=== PATIENT | female | born 2000 | race Caucasian/White ===

== ENCOUNTER 2019-07-17 13:00 | Emergency (ER) | payer BC, MEDICAID, SELFPAY ==
--- NOTE | ~2019-07-17 | XR_ITS ---
EXAMINATION: XR chest 2V DATE: 07/17/2019 13:40 INDICATION: Left-sided chest pressure TECHNIQUE: PA and lateral views of the chest were obtained. COMPARISON: None FINDINGS: The lungs are clear with no focal airspace opacities, pulmonary edema, pleural effusion or pneumothor ax. The cardiomediastinal silhouette is normal. 20 degree thoracolumbar dextroscoliosis. IMPRESSION: 1. No acute cardiopulmonary disease. Reviewed, dictated and finalized at location A. 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
--- NOTE | ~2019-07-17 | CT_ITS ---
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 Elevated d-dimer. TECHNIQUE: Computed tomographic angiography (CTA) of the chest was performed with 100 mL Omnipaque-35 0 intravenous contrast. The dose-length product was 137.15 mGy-cm. Maximum intensity projection 3D-re constructions of the aorta and other arteries were constructed by the technologist on a separate work station. Automated exposure control and iterative reconstruction technique were employed. COMPARISON: No prior studies for comparison. FINDINGS: The study is technically limited by streak artifact from contrast in the SVC. This limits evaluation of the right upper lobe segmental and subsegmental pulmonary arteries. No definite pulmonary embolism is identified. No significant pleural or pericardial effusion. There is residual thymic tissue. No e vidence for aortic aneurysm or dissection. The upper abdomen is unremarkable. No endobronchial lesion s. No evidence for pneumothorax. No focal airspace consolidation. IMPRESSION: 1. Limited study due to streak artifact in the SVC limiting evaluation of the right upper lobe pulmon den arteries. No central pulmonary embolism. Reviewed, dictated and finalized at location A. FITTINGS MOLDER IMPRESSION: 1. Limited study due to streak artifact in the SVC limiting evaluation of the r ight upper lobe pulmonary arteries. No central pulmonary embolism.
--- NOTE | ~2019-07-17 | NM_ITS ---
NM lung vent and perfusion INDICATION: Right-sided chest pressure. TECHNIQUE: The patient inhaled aerosolized 9.9 mCi xenon-133. Following ventilation scan, 5.1 mCi Tc 99m MAA was injected intravenously for perfusion images. Multiple images were then acquired. COMPARISON: Chest x-ray dated 07/17/2019 FINDINGS: The comparison chest radiograph demonstrates no pulmonary infiltrates or pleural fluid. Th e perfusion scan is normal. The aerosol in images show uniform deposition throughout the lungs. IMPRESSION: 1: Normal ventilation and perfusion images. Reviewed, dictated and finalized at location A. ATTENDANT
--- NOTE | 2019-07-17 13:01 | ECG_ITS ---
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
[2019-07-17 13:11] VITALS: BP 148/79; PULSE 79; RESP 20; TEMP 36.8; O2SAT 100
--- NOTE | 2019-07-17 13:20 | PC.NURSE ---
lab draw attempt x 2 unsuccessful in triage.
[2019-07-17 15:25] VITALS: PULSE 53
[2019-07-17 15:27] VITALS: BP 123/85; PULSE 57; RESP 17; O2SAT 100
[2019-07-17 15:29] LABS: Basophils Absolute Auto 0.1 K/mm3 (0.0-0.1); Basophils Percent Auto 0.6 % (0.2-1.2); Eosinophils Absolute Auto 0.2 K/mm3 (0-0.3); Eosinophils Percent Auto 1.7 % (0-4.4); Hematocrit 39.1 % (37.0-47.0); Hemoglobin 13.4 g/dL (12.0-15.0); Immature Granulocyte Absolute 0.03 K/mm3 (0.00-0.031); Immature Granulocyte Percent A 0.3 % (0-0.5); Lymphocytes Absolute Auto 2.86 K/mm3 (0.9-3.2); Lymphocytes Percent Auto 29.8 % (18.3-44.2); Mean Corpuscular HGB Conc 34.3 g/dl (32-36); Mean Corpuscular Hemoglobin 29.4 pg (26-34); Mean Corpuscular Volume 85.7 fl (80-100); Mean Platelet Volume 9.8 fl (7.4-10.4); Monocytes Absolute Auto 0.4 K/mm3 (0.1-0.6); Monocytes Percent Auto 4.3 % (2.6-8.5); Neutrophils Absolute Auto 6.1 K/mm3 (1.3-6.7); Neutrophils Percent Auto 63.3 % (45.5-73.1); Platelet Count Result 387 k/mm3 (150-375); Red Blood Count 4.56 M/mm3 (4.2-5.4); Red Cell Distribution Width 12.7 % (11.5-14.5); White Blood Count 9.6 K/mm3 (4.5-10.0)
[2019-07-17 15:39] LABS: Partial Thromboplastin Time 21.9 SECONDS (22.3-36.8); Prothrombin Time 12.4 Seconds (11.1-14.7)
[2019-07-17 15:50] LABS: D Dimer 1.38 ug/mL (<0.48)
[2019-07-17 16:04] LABS: Troponin I < 0.012 ng/mL (0.000-0.034)
[2019-07-17] MEDS: LORAZEPAM 0.5 MG TABLET PO (16:08)
[2019-07-17 16:14] LABS: Blood Urea Nitrogen 10 mg/dL (8-21); Calcium 9.7 mg/dL (8.9-10.7); Carbon Dioxide 19 mmol/L (22-30); Chloride 103 mmol/L (98-107); Estimated Glomerular Filt Rate > 60; Glucose 86 mg/dL (65-105); Potassium 4.7 mmol/L (3.4-5.0); Sodium 138 mmol/L (134-143)
--- NOTE | 2019-07-17 16:23 | ED.GENADULT ---
HPI - General Adult General Chief complaint: Chest Pain Stated complaint: right sided chest pressure Time Seen by Provider: 07/17/19 15:33 Source: patient Mode of arrival: ambulatory Limitations: no limitations History of Present Illness HPI narrative: Patient is a 18-year-old female who presents to emergency department for evaluation of left-sided chest pressure radiating to the left upper extremity denies any URI symptoms or similar occurrence in the past on arrival denying any pain has had similar occurrence in the past that resolved mother notes she has had similar occurrences diagnosed as anxiety patient on arrival is resting comfortably in the room does note anxiety denies any pain is noted does note heaviness nothing is made it better or worse. Related Data Home Medications Medication Instructions Recorded Confirmed norethindrone-e.estradiol-iron 1 cap PO DAILY 06/01/19 06/01/19 [T[place]tulla] Allergies Allergy/AdvReac Type Severity Reaction Status Date / Time clavulanic acid Allergy Mild Rash Unverified 05/16/17 22:49 Penicillins Allergy Mild Unknown Unverified 06/01/19 17:15 amoxicillin Allergy Unknown Unknown Verified 05/16/17 22:49 BETALACTAMASEIN Allergy Mild Unknown Uncoded 06/01/19 17:15 Review of Systems Review of Systems: All systems reviewed & are unremarkable except as noted in HPI and below PMFSH Past Medical History Medical History History of migraine Social History Social History (Updated 07/17/19 @ 16:26 by Wild Smith PA-C) Smoking status: Never smoker Gender identity (if verbalized by the patient): Female Exam Narrative: Exam Narrative: GENERAL: Well-appearing, well-nourished, and in no acute distress. HEAD: Normocephalic, atraumatic. EYES: PERRLA and EOMI. ENT: Nares clear, no rhinorrhea or epistaxis. Mucous membranes moist. CHEST: Clear to auscultation. No respiratory distress. No wheezes rales or rhonchi HEART: Regular rate and rhythm. No murmur heard. Normal peripheral pulses. ABDOMEN: Soft, nontender, nondistended EXTREMITIES: Normal range of motion. No edema. SKIN: Warm, dry, no rash. NEURO: No focal deficits. Alert and oriented x3. PSYCH: Normal mood and affect. Course Course Emergency Course: Patient in the room in no distress aware of case findings treatment plan and diagnosis agreeing to follow-up as directed or to return if symptoms worsen or concerns Consultations Consultation #1: Discussed case with primary care who will follow the patient Date: 07/17/19 Vital Signs Vital signs: Vital Signs Temperature 98.2 F 07/17/19 13:11 Pulse Rate 79 07/17/19 13:11 Respiratory Rate 20 07/17/19 13:11 Blood Pressure 148/79 H 07/17/19 13:11 Pulse Oximetry 100 07/17/19 13:11 Temperature 98.2 F 07/17/19 13:11 Pulse Rate 57 L 07/17/19 15:27 Respiratory Rate 17 07/17/19 15:27 Blood Pressure 123/85 07/17/19 15:27 Pulse Oximetry 100 07/17/19 15:27 Medical Decision Making MDM Narrative Medical decision making narrative: Patient in the room at this time in no distress aware of case findings treatment plan and diagnosis. Likely anxiety as her symptoms with low risk VQ scan felt appropriate for discharge home for further evaluation on outpatient basis Vital Signs Vital Signs: Vital Signs Temperature 98.2 F 07/17/19 13:11 Pulse Rate 79 07/17/19 13:11 Respiratory Rate 20 07/17/19 13:11 Blood Pressure 148/79 H 07/17/19 13:11 Pulse Oximetry 100 07/17/19 13:11 Temperature 98.2 F 07/17/19 13:11 Pulse Rate 57 L 07/17/19 15:27 Respiratory Rate 17 07/17/19 15:27 Blood Pressure 123/85 07/17/19 15:27 Pulse Oximetry 100 07/17/19 15:27 Lab Data Result diagrams: 07/17/19 15:24 07/17/19 15:24 Labs: Lab Results 07/17/19 07/17/19 07/17/19 Range/Units 15:24 15:24 15:24 WBC 9.6 (4.5-10.0) K/mm3 RBC 4.56 (4.2
[2019-07-17 18:19] VITALS: BP 118/71; PULSE 76; RESP 18; O2SAT 99
[2019-07-17 19:09] LABS: Troponin I < 0.012 ng/mL (0.000-0.034)
[2019-07-17 20:18] VITALS: BP 116/76; PULSE 77; RESP 18; O2SAT 98
== END 2019-07-17 20:19 | disposition home or self-care (01) ==
PROVIDERS: Emergency Medicine Emergency Medical Services; Emergency Provider Family Medicine; PCP Pediatrics
DX: R07.89 Other chest pain (principal); R94.31 Abnormal electrocardiogram [ECG] [EKG]
CPT/HCPCS: 36415; 71046; 71275; 78582; 80048; 81025; 84484; 85025; 85380; 85610; 85730; 93005; 99284; A9270; A9540; A9558; Q9967

== ENCOUNTER 2020-03-24 08:48 | Emergency (ER) | payer BC, MEDICAID, SELFPAY ==
[2020-03-24 08:59] VITALS: BP 102/59; PULSE 118; RESP 16; TEMP 36.7; O2SAT 99
--- NOTE | 2020-03-24 09:22 | ED.URI ---
HPI - URI/Sore Throat General Chief Complaint: Upper Respiratory Infection Stated Complaint: Ear Pain Time Seen by Provider: 03/24/20 09:06 Source: patient and RN notes reviewed Mode of arrival: ambulatory Limitations: no limitations History of Present Illness HPI Narrative: Patient presents today complaining of a sore throat, fever up to 101.8 since yesterday with bilateral ear pain x2 days. She also complains of mild headache. Currently rates her pain 7/10. She has been taking Tylenol with mild relief. Denies cough, congestion, rhinorrhea, nausea or vomiting, loss of taste or smell. Denies sick exposures or exposure to COVID-19. Patient was on vacation in [place] last week. MD elicited complaint: fever and sore throat Related Data Home Medications Medication Instructions Recorded Confirmed norethindrone-e.estradiol-iron 1 cap PO DAILY 06/01/19 03/24/20 [Taytulla] Allergies Allergy/AdvReac Type Severity Reaction Status Date / Time clavulanic acid Allergy Mild Rash Verified 03/24/20 09:33 Penicillins Allergy Mild Unknown Verified 03/24/20 09:33 Review of Systems Review of Systems: Narrative: CONSTITUTIONAL: Denies body aches, chills, or sweat.+ fever. EYES: Denies visual changes, redness, or discharge. ENT: Denies rhinorrhea, congestion. + sore throat, bilateral ear pain CARDIOVASCULAR: Denies chest pain, palpitations, or edema. RESPIRATORY: Denies cough or dyspnea. GASTROINTESTINAL: Denies abdominal pain, nausea, vomiting, or diarrhea. GENITOURINARY: Denies dysuria or hematuria. SKIN: Denies rash, itching, or wounds. MUSCULOSKELETAL: Denies back pain, joint pain, or myalgia. NEUROLOGIC: Denies headache, numbness, tingling, or weakness. PSYCH: Denies depression or anxiety. [facility] Past Medical History Medical History (Updated 03/24/20 @ 09:24 by JUAN Dixon, ) History of migraine Family History Family History Other Family history of seizure disorder Hypertension Social History Social History (Updated 07/17/19 @ 16:26 by Wild Smith PA-C) Smoking status: Never smoker Gender identity (if verbalized by the patient): Female Comments At time of signature, I have reviewed and agree with nursing past medical, surgical, social and family history unless otherwise noted. Please see nursing chart for further information. There is no relevant family history pertinent to the presenting complaint Exam Narrative: Exam Narrative: GENERAL: Well-appearing, well-nourished, and in no acute distress. HEAD: Normocephalic, atraumatic. EYES: EOMI. No redness or drainage. Conjunctivae normal. ENT: Mucous membranes pink and moist. Nares clear. No rhinorrhea. TMs normal bilaterally. Throat mildly erythematous posteriorly without edema or exudate. Uvula midline. NECK: Normal AROM. Supple. No lymphadenopathy. CHEST: No respiratory distress. Clear to auscultation. HEART: Regular rate and rhythm. No murmur appreciated. Normal peripheral pulses. EXTREMITIES: Normal range of motion. No edema. SKIN: Warm, dry, no rash. Capillary refill normal. Normal skin turgor. NEURO: No focal deficits. Alert and oriented x3. Gait steady. PSYCH: Normal affect. No signs of depression or anxiety. Course Course Emergency Course: Due to recent exposure and symptoms, patient may have a possible COVID-19 infection. Signs and symptoms discussed with patient. Patient educated to self-isolate in a room in his/her home away from others they live with. Use mask if available. Patient was advised not to leave house for any reason ? Self-treatment discussed including Tylenol for fever, pain, or myalgia, and cough cold medications for symptoms. Patient to check temperature daily and monitor for symptoms of respiratory distress. Patient should check in daily with primary care office/system via phone/virtual platform ? Nature of the disease to cause dinora
== END 2020-03-24 09:30 | disposition home or self-care (01) ==
PROVIDERS: Emergency Provider Nurse Practitioner; PCP Pediatrics
DX: J06.9 Acute upper respiratory infection, unspecified (principal); Z20.828 Contact with and (suspected) exposure to other viral communicable diseases
CPT/HCPCS: 87081; 87804; 87880; 99213; G0463

== ENCOUNTER 2020-03-25 08:18 | Outpatient (NON) | payer BC, MEDICAID, SELFPAY ==
[2020-03-25 20:51] LABS: SARS-CoV-2 RNA PCR Negative
== END 2020-03-25 08:19 ==
PROVIDERS: PCP Pediatrics; Visit Provider Nurse Practitioner
DX: J06.9 Acute upper respiratory infection, unspecified (principal); Z20.828 Contact with and (suspected) exposure to other viral communicable diseases
CPT/HCPCS: 87635; C9803; U0003

== ENCOUNTER 2020-09-22 07:45 | Emergency (ER) | payer BC, MEDICAID, SELFPAY ==
--- NOTE | ~2020-09-22 | XR_ITS ---
EXAMINATION: XR abdomen/kub 1V DATE: 09/22/2020 10:04 INDICATION: Right flank pain. TECHNIQUE: A supine view of the abdomen on 2 radiographs was obtained. COMPARISON: Abdomen radiographs 05/16/2017, CT abdomen and pelvis 09/22/2020 FINDINGS: There are no dilated loops of bowel. There is a small volume of stool in the colon. IMPRESSION: 1. Normal bowel gas pattern. Reviewed, dictated and finalized at location A.
--- NOTE | ~2020-09-22 | CT_ITS ---
EXAMINATION: CT abdomen pelvis wo con DATE: 09/22/2020 09:45 INDICATION: Right flank pain. TECHNIQUE: Computed tomography (CT) of the abdomen and pelvis was performed without intravenous contr ast. Automated exposure control and iterative reconstruction technique were employed. The dose-length product was 174.10 mGy-cm. COMPARISON: Chest CT 07/17/2019 FINDINGS: The visualized portions of the lung bases are clear without pneumonia or pleural effusion. The heart size is normal. No pericardial effusion. The liver, gallbladder, spleen, pancreas, adrenal glands, and kidneys are normal. There is no urolithiasis. There are no dilated loops of bowel. The ap pendix is normal. There are no pathologically enlarged lymph nodes. There is no free intraperitoneal fluid. There is dextroscoliosis of thoracolumbar spine. IMPRESSION: 1. No etiology for the patient's symptoms. Reviewed, dictated and finalized at location A.
[2020-09-22 07:57] VITALS: BP 115/79; PULSE 73; RESP 18; TEMP 36.2; O2SAT 100
--- NOTE | 2020-09-22 08:02 | ED.BACK ---
HPI - Back Pain/Injury General Chief Complaint: Back Pain/Injury Stated Complaint: back pain Time Seen by Provider: 09/22/20 07:52 Source: patient Mode of arrival: ambulatory Limitations: no limitations History of Present Illness HPI Narrative: This is a 19 year old female who presents for evaluation of right lower back pain . This pain started suddenly started at 645 am and it woke her up from her sleep. She took aleve at the onset of her pain so her pain decreased from 8/10 to 5/10 now. She denies radiation of her pain. Denies nausea, vomiting, fever or urinary symptoms. She is also currently on her menstrual cycle now. She denies history of kidney stones. Timing: improved Quality: stabbing Related Data Home Medications Medication Instructions Recorded Confirmed norethindrone-e.estradiol-iron 1 cap PO DAILY 06/01/19 03/24/20 [Taytulla] Allergies Allergy/AdvReac Type Severity Reaction Status Date / Time amoxicillin [From Augmentin] Allergy Mild Rash Verified 09/22/20 08:05 clavulanic acid Allergy Mild Rash Verified 09/22/20 08:01 Penicillins Allergy Mild Unknown Verified 09/22/20 08:01 Review of Systems Review of Systems: All systems reviewed & are unremarkable except as noted in HPI and below PMFSH Past Medical History Medical History (Updated 09/22/20 @ 10:44 by Sarai Logan MD) History of migraine Surgical History Surgical History (Updated 09/22/20 @ 08:04 by Sarai Logan MD) No pertinent past surgical history Family History Family History Other Family history of seizure disorder Hypertension Social History Social History (Updated 07/17/19 @ 16:26 by Wild Smith PA-C) Smoking status: Never smoker Gender identity (if verbalized by the patient): Female Exam Const: General: no acute distress and alert Orientation/consciousness: patient oriented x3 Eyes: EOM: EOMs intact bilaterally Chest: Chest palpation & inspection: normal inspection of the chest Resp: Effort & Inspection: normal respiratory effort and no retractions Auscultation: clear to auscultation bilaterally Cardio: Rate: regular rate Rhythm: regular rhythm Heart sounds: no murmurs GI: Auscultation: normal bowel sounds Other: soft, nontender, non distended : General: Yes no CVA tenderness Speculum Exam - Cervix: Cervical os closed Bimanual Exam- Adnexa, other: no masses and No adnexal tenderness Skin: General skin exam: normal color Rashes: no rashes Course Reevaluation(s) Reevaluation #1: I reviewed with patient that she has not definite UTI. she is currently on her cycle. She will drink plenty of fluid. Other than vaginal bleeding her pelvic was unremarkable. No adnexal tenderness or pain due to ovarian cyst. Date: 09/22/20 Time: 10:42 Vital Signs Vital signs: Vital Signs Temperature 97.2 F L 09/22/20 07:57 Pulse Rate 73 09/22/20 07:57 Respiratory Rate 18 09/22/20 07:57 Blood Pressure 115/79 09/22/20 07:57 Pulse Oximetry 100 09/22/20 07:57 Temperature 97.2 F L 09/22/20 07:57 Pulse Rate 60 09/22/20 10:21 Respiratory Rate 16 09/22/20 10:21 Blood Pressure 141/88 H 09/22/20 10:21 Pulse Oximetry 100 09/22/20 10:21 MDM - Back Pain/Injury Lab Data Attestation: I reviewed the patient's lab results. Result diagrams: 09/22/20 08:58 09/22/20 08:58 Labs: Lab Results 09/22/20 09/22/20 09/22/20 Range/Units 08:58 08:58 08:58 WBC 7.0 (4.5-10.0) K/mm3 RBC 4.45 (4.2-5.4) M/mm3 Hgb 13.3 (12.0-15.0) g/dL Hct 40.3 (37.0-47.0) % MCV 90.6 (80-100) fl MCH 29.9 (26-34) pg MCHC 33.0 (32-36) g/dl RDW 12.1 (11.5-14.5) % Plt Count 345 (150-375) k/mm3 MPV 9.9 (7.4-10.4) fl Immature Gran % (Auto) 0.3 (0-0.5) % Neut % (Auto) 38.4 L (45.5-73.1) % Lymph % (Auto) 48.3 H (18.3-44.2) % [place] % (Auto) 7.
[2020-09-22] MEDS: CYCLOBENZAPRINE HCL 5 MG TABLET PO (08:05)
[2020-09-22 09:10] LABS: Basophils Absolute Auto 0.1 K/mm3 (0.0-0.1); Eosinophils Absolute Auto 0.4 K/mm3 (0-0.3); Hematocrit 40.3 % (37.0-47.0); Hemoglobin 13.3 g/dL (12.0-15.0); Immature Granulocyte Absolute 0.02 K/mm3 (0.00-0.031); Immature Granulocyte Percent A 0.3 % (0-0.5); Lymphocytes Absolute Auto 3.39 K/mm3 (0.9-3.2); Lymphocytes Percent Auto 48.3 % (18.3-44.2); Mean Corpuscular Hemoglobin 29.9 pg (26-34); Mean Corpuscular Volume 90.6 fl (80-100); Mean Platelet Volume 9.9 fl (7.4-10.4); Monocytes Absolute Auto 0.5 K/mm3 (0.1-0.6); Neutrophils Absolute Auto 2.7 K/mm3 (1.3-6.7); Neutrophils Percent Auto 38.4 % (45.5-73.1); Platelet Count Result 345 k/mm3 (150-375); Red Blood Count 4.45 M/mm3 (4.2-5.4); Red Cell Distribution Width 12.1 % (11.5-14.5)
[2020-09-22 09:20] LABS: Alanine Aminotransferase 14 U/L (4-35); Albumin Level 4.8 g/dL (3.5-5.1); Alkaline Phosphatase 73 U/L (38-126); Anion Gap 12 mmol/L (8-16); Aspartate Amino Transferase 25 U/L (14-36); Bilirubin,Total 0.9 mg/dL (0.2-1.3); Blood Urea Nitrogen 11 mg/dL (7-17); Calcium 9.6 mg/dL (8.4-10.2); Carbon Dioxide 21 mmol/L (22-30); Chloride 106 mmol/L (98-107); Estimated Glomerular Filt Rate > 60; Glucose 92 mg/dL (65-105); Potassium 3.6 mmol/L (3.4-5.0); Sodium 139 mmol/L (137-145)
[2020-09-22 09:23] LABS: Add Urine Microscopic? YES; Appearance Urine Cloudy (Clear); Bilirubin Urine Negative (Negative); Blood Urine 3+ (Negative); Color Urine Amber (Yellow); Glucose Urine UA Negative (Negative); Ketones Urine Negative (Negative); Leukocyte Esterase Ur Negative LEU/UL (Negative); Mucus Urine Heavy /lpf; Nitrate Urine Negative (Negative); Protein Urine 2+ mg/dL (Negative); RBC Urine >75 /hpf (0-2); Squamous Epithelial Cell Urine Many /hpf (Few); Urobilinogen Urine Negative mg/dL (<2.0); WBC Clumps Urine Present /HPF
[2020-09-22 09:31] LABS: Specific Grav Ur 1.033 (1.001-1.035)
[2020-09-22 10:21] VITALS: BP 141/88; PULSE 60; RESP 16; O2SAT 100
--- NOTE | 2020-09-22 10:24 | PC.NURSE ---
pt does not want to take ordered ibuprofen at this time. reports 0/10 pain
== END 2020-09-22 10:56 | disposition home or self-care (01) ==
PROVIDERS: Emergency Provider General Practice; PCP Pediatrics
DX: M54.5 Low back pain (principal)
CPT/HCPCS: 36415; 74018; 74176; 80053; 81001; 81025; 85025; 99284; A9270

== ENCOUNTER 2021-10-13 12:35 | Emergency (ER) | payer BC, MEDICAID, SELFPAY ==
[2021-10-13 12:44] VITALS: BP 106/66; PULSE 88; RESP 16; TEMP 36.7; O2SAT 100
--- NOTE | 2021-10-13 12:55 | ED.URI ---
HPI - URI/Sore Throat General Chief Complaint: Upper Respiratory Infection Stated Complaint: Cough,Ear Pain Time Seen by Provider: 10/13/21 12:55 Source: patient, RN notes reviewed and old records reviewed Mode of arrival: ambulatory Limitations: no limitations History of Present Illness HPI Narrative: 20-year-old female presents to the [facility] with complaint of cough and ear pain for 9 to 10 days. Had been seen last Wednesday, 6 days ago and had a negative COVID test at [facility]. Has had at home COVID test. No other treatments prior to arrival. MD elicited complaint: cough, rhinorrhea and nasal congestion Related Data Home Medications Medication Instructions Recorded Confirmed etonogestrel-ethinyl estradiol vag ring VAGINAL 10/13/21 Allergies Allergy/AdvReac Type Severity Reaction Status Date / Time amoxicillin [From Augmentin] Allergy Mild Rash Verified 09/22/20 08:05 clavulanic acid Allergy Mild Rash Verified 09/22/20 08:01 Penicillins Allergy Mild Unknown Verified 09/22/20 08:01 Review of Systems Review of Systems: All systems reviewed & are unremarkable except as noted in HPI and below Constitutional: Constitutional: Reports no additional constitutional complaints, Denies chills, Denies fever(s) and Denies headache(s) Eyes: Eyes: Reports no additional eye complaints ENT: Reports as per HPI, Denies vertigo, Denies dizziness, Denies headache(s), Reports nasal congestion and Denies sore throat Cardiovascular: Cardiovascular: Reports no additional cardiovascular complaints, Denies chest pain, Denies syncope, Denies rapid heart rate and Denies dyspnea Respiratory: Respiratory: Reports as per HPI, Reports chest congestion, Reports cough, Denies dyspnea and Reports wheezing Gastrointestinal: Gastrointestinal: Reports no additional gastrointestinal complaints, Denies abdominal pain, Denies diarrhea, Denies nausea and Denies vomiting Musculoskeletal: Musculoskeletal: Reports no additional musculoskeletal complaints, Denies back pain and Denies numbness Integumentary/Breasts: Skin/Breast: Reports system reviewed and no additional complaints, except as docu Neurologic: Reports system reviewed and no additional complaints, except as documented, Denies vertigo, Denies dizziness, Denies syncope, Denies headache(s), Denies focal weakness and Denies numbness Psychiatric: Psychiatric: Reports no additional psychiatric complaints Allergic/Immunologic: Allergic/Immunologic: Reports no additional allergic/immunologic complaints and Denies wheezing PMFSH Past Medical History Medical History History of migraine Surgical History Surgical History No pertinent past surgical history Family History Family History Other Family history of seizure disorder Hypertension Social History Social History Smoking status: Never smoker Gender identity (if verbalized by the patient): Female Comments At the time of my signature, I reviewed and agree with the nursing past medical, surgical, social, and family history. There is no relevant family history pertinent to the patient complaint. Exam Const: General: cooperative, healthy appearing, no acute distress, well developed and alert Nutritional Appearance: well nourished Orientation/consciousness: patient oriented x3 Limitations: no limitations HENMT: Head: normal to inspection Ears: external ears normal, TM's normal bilaterally and EAC's normal General nose exam: Abnormal mucous membranes and turbinates present boggy bilateral and Nasal discharge present clear bilateral Face and sinus: normal facial exam Mouth: Yes Normal oral and palatal mucosa present Throat: posterior oropharynx normal, tonsils normal and uvula midline Eyes: Conjunctivae: co
== END 2021-10-13 13:09 | disposition home or self-care (01) ==
PROVIDERS: Emergency Provider Nurse Practitioner
DX: J40 Bronchitis, not specified as acute or chronic (principal); S01.331A Puncture wound without foreign body of right ear, initial encounter; L08.9 Local infection of the skin and subcutaneous tissue, unspecified; X58.XXXA Exposure to other specified factors, initial encounter
CPT/HCPCS: 99213; G0463

== ENCOUNTER 2023-04-15 15:04 | Outpatient (CLI) | payer BC, MEDICAID, SELFPAY ==
[2023-04-15 16:15] LABS: Hematocrit 38.3 % (37.0-47.0); Hemoglobin 12.3 g/dL (12.0-15.0); Mean Corpuscular HGB Conc 32.1 g/dl (32-36); Mean Corpuscular Hemoglobin 27.6 pg (26-34); Mean Corpuscular Volume 85.9 fl (80-100); Mean Platelet Volume 10.7 fl (7.4-10.4); Platelet Count Result 355 k/mm3 (150-375); Red Blood Count 4.46 M/mm3 (4.2-5.4); Red Cell Distribution Width 12.9 % (11.5-14.5); White Blood Count 7.2 K/mm3 (4.5-10.0)
[2023-04-15 16:41] LABS: Beta HCG Quantitative < 2.39 mIU/ML
[2023-04-15 16:56] LABS: Thyroid Stimulating Hormone 0.981 uIU/mL (0.465-4.680)
== END 2023-04-15 15:05 | disposition home or self-care (01) ==
PROVIDERS: PCP Nurse Practitioner Family
DX: H93.A1 Pulsatile tinnitus, right ear (principal)
CPT/HCPCS: 36415; 82607; 84443; 84702; 85027

== ENCOUNTER 2025-01-12 16:15 | Emergency (ER) | payer BC, SELFPAY ==
--- NOTE | 2025-01-12 16:26 | ED.URI ---
HPI - URI/Sore Throat General Chief Complaint: Upper Respiratory Infection Stated Complaint: Sore Throat Time Seen by Provider: 01/12/25 16:46 Source: patient and RN notes reviewed Mode of arrival: ambulatory Limitations: no limitations History of Present Illness HPI Narrative: 24-year-old female presents with concern for for 5 day history of nasal congestion, postnasal drainage, ear pressure congestion, sore throat. She denies fevers aches chills or sweats. She has been taking Mucinex. MD elicited complaint: sore throat Related Data Home Medications ?Medication ?Instructions ?Recorded ?Confirmed ?Last Taken ?Type etonogestrel 0.12 mg-ethinyl vag ring vaginal 10/13/21 04/19/24 Unknown History estradiol 0.015 mg/24 hr vaginal ring Allergies Allergy/AdvReac Type Severity Reaction Status Date / Time amoxicillin (From Augmentin) Allergy Mild Rash Verified 01/12/25 16:19 clavulanic acid Allergy Mild Rash Verified 01/12/25 16:19 Penicillins Allergy Mild Unknown Verified 01/12/25 16:19 Review of Systems Review of Systems: CONSTITUTIONAL: Denies malaise, chills, sweats, or fever. EYES: Denies visual changes, redness, or discharge. ENT: Reports rhinorrhea, congestion, sore throat. Denies sinus pain, otalgia CARDIOVASCULAR: Denies chest pain, palpitations, or edema. RESPIRATORY: Reports cough. Denies dyspnea. GASTROINTESTINAL: Denies abdominal pain, nausea, vomiting, diarrhea SKIN: Denies rash or itching. MUSCULOSKELETAL: Denies myalgia. NEUROLOGIC: Denies headache. All systems reviewed & are unremarkable except as noted in HPI and below PMFSH Past Medical History Medical History History of migraine Migraines Surgical History Surgical History No pertinent past surgical history Family History Family History (Updated 04/19/24 @ 17:18 by Annita Mohr NP) Father Depression Thyroid disease Mother Depression Heart disease Thyroid disease thyroid cancer Other Family history of seizure disorder Hypertension Social History Social History (Updated 04/19/24 @ 17:10 by Annita Mohr NP) Social History: Eb is single, no children. 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 Lifelong non-smoker, drinks alcohol a few times a month. Denies drug use. Smoking status: Never smoker Second hand tobacco smoke exposure: No Alcohol intake: current Drinks per week: 1 Substance use: never Lack of Transportation: No Lack of Food: Never True Current Housing: I Have Housing Concerned About Future Housing: No Difficulty Paying Gas/Electric Bills: No Difficulty Paying for Meds: No Currently Unemployed: No Education: High School Diploma/GED Difficulty w/ Childcare or Family Care: No Gender identity (if verbalized by the patient): Female Comments At time of signature, agree with nursing past medical, surgical, social and family history. There is no relevant family history pertinent to the presenting complaint Exam Narrative: GENERAL: Well-appearing, well-nourished, and in no acute distress. HEAD: Normocephalic EYES: PERRLA, conjunctivae clear ENT: Nares clear. Mucous membranes moist. TM pearly wyman with dull light reflex bilaterally; no tragal tenderness. Oropharynx not erythematous without lesions. Tonsils not enlarged and without exudate, no drooling, no hoarseness, no trismus, uvula midline. Lesion noted on the right NECK: Supple. No lymphadenopathy CHEST: Clear to auscultation, breath sounds equal. No wheezing, rhonchi, rales, or stridor. No respiratory distress, speaks in full sentences. HEART: Regular rate and rhythm. No murmur heard. SKIN: Warm, dry, no rash. NEURO: Alert and oriented x3. PSYCH: Normal mood and affect Course Course Emergency Course: Patient is aware of diagnosis, understands and agrees to treatment plan. Anticipatory guidance given. Patient agrees to follow-up as directed and is aware of reasons to seek care at the emergency department. Portions of this record may have been created with voice recognition software Level of Care: Express Care Visit Vital Signs Vital signs: Reviewed. MDM - URI/Sore Throat MDM Narrative Medical decision making narrative: Differential diagnosis considered: Salgado virus, strep pharyngitis, allergic rhinitis, upper respiratory tract infection, sinusitis, rhinosinusitis, nasopharyngitis. viral pharyngitis, otitis media, otitis externa, pneumonia, bronchitis, viral cough syndrome, viral syndrome, and influenza. Exam findings show no acute concerns or changes; patient is non-toxic appearing and is in no distress. Patient is appropriate for outpatient treatment and follow-up. Lab Data Attestation: I reviewed the patient's lab results. Critical Care Time Critical Care Time Critical Care Time: No Discharge Plan Discharge Clinical Impression: Viral infection Patient Disposition: Home Condition: Stable Instructions: Upper Respiratory Infection (ED) Additional Instructions: Your rapid COVID and flu tests are negative Your rapid strep swab was negative today at [facility]. A throat culture will be sent to the laboratory for further testing. If the test is positive, you will receive a phone call within 48 hours and an appropriate antibiotic will be initiated at that time. Your symptoms are likely due to a viral illness, which is not treated with antibiotics. Viral symptoms can be present for up to a few weeks. -Alternate Tylenol and Motrin per package directions for fever or pain. -Antihistamine medication such as Benadryl at night and Zyrtec during the day can help improve symptoms. -Eat and drink things that are easy to swallow, like tea or soup, or popsicles to suck on. -Oral rinses such as: Salt water gargles and/or may use topical anesthetic (eg. Chloraseptic spray) or lozenges to relieve dryness or throat pain). -Frequent hand washing or hand desktop manager is one of the best ways to prevent spread of infection. -Follow up with primary care provider in 2-3 days if condition is not improving; or seek ER visit if you have trouble breathing, cannot drink enough fluids, have muffled voice, difficulty opening your mouth, or severe swelling. Patient Language: Danish Prescriptions: New pseudoephedrine HCl [12 Hour Decongestant] 120 mg tablet extended release 120 mg PO Q12H PRN (Reason: nasal congestion) Qty: 20 0RF Magic Mouthwash (Dr. Grey) 120 mL suspension 10 ml PO Q4H PRN (Reason: pain) Qty: 120 0RF Rx Instructions: diphenhydramine 12.5 mg/5 mL oral elixir 40 mL; Lidocaine Viscous 2 % mucosal solution 40 mL; Maalox 200 mg-200 mg-20 mg/5 mL oral suspension 40 mL; Per 120 mL No Action etonogestrel-ethinyl estradiol 0.12-0.015 mg/24 hr ring VAGINAL (DME) Space Chamber Spacer See Rx Instructions .ROUTE .MEDSUPPLY Qty: 1 0RF Rx Instructions: As directed rizatriptan 10 mg tablet See Rx Instructions PO .COMPLEX Qty: 14 4RF Rx Instructions: take 1 tab at onset of headache; if no relief may repeat 1 tab after at least 2 hrs; max = 3 tabs/24 hr PO Follow-up/Referrals: Kavitha Benson MD [Primary Care Provider] - Stand Alone Forms: Work/School Release IP Time of Disposition: 16:56
[2025-01-12 16:27] VITALS: BP 114/68; PULSE 72; RESP 18; TEMP 37.1; O2SAT 100
[2025-01-12 16:35] LABS: EDSTREPNEGPOS1 Negative (Negative)
[2025-01-12 16:54] LABS: EDCOVIDSCREEN Negative (Negative); EDINFLUASCREEN Negative (Negative); EDINFLUBSCREEN Negative (Negative)
== END 2025-01-12 17:00 | disposition home or self-care (01) ==
PROVIDERS: Emergency Provider Nurse Practitioner; PCP Family Medicine
DX: B34.9 Viral infection, unspecified (principal); Z20.822 Contact with and (suspected) exposure to COVID-19
CPT/HCPCS: 87081; 87426; 87804; 87880; 99213; G0463

== ENCOUNTER 2025-01-18 15:04 | Emergency (ER) | payer BC, SELFPAY ==
[2025-01-18 15:10] VITALS: BP 121/86; PULSE 95; RESP 18; TEMP 36.6; O2SAT 100
--- NOTE | 2025-01-18 15:52 | ED.EAR ---
HPI - Ear Problem General Chief complaint: Ear Stated complaint: Ear Irritation Time Seen by Provider: 01/18/25 15:40 Source: patient and RN notes reviewed Mode of arrival: ambulatory Limitations: no limitations History of Present Illness HPI Narrative: 24-year-old female presents Express Care complaining of right ear pain for approximately 4 days. Patient says she is recovering from [id number] disease. Patient says she saw her PCP 4 days ago was having pain them but they did not see any signs of infection. His to have pain in her right ear. Patient denies any recent swimming, fevers, body aches, chills, nausea vomiting, diarrhea, or any other symptoms. Patient has been taking Tylenol ibuprofen with some relief. Related Data Home Medications ?Medication ?Instructions ?Recorded ?Confirmed ?Last Taken ?Type etonogestrel 0.12 mg-ethinyl vag ring vaginal 10/13/21 01/15/25 Unknown History estradiol 0.015 mg/24 hr vaginal ring ascorbic acid 100 mg-zinc sulfate 1 tablet PO DAILY 01/15/25 01/15/25 Unknown History 200 mg tablet multivitamin 1 tablet PO DAILY 01/15/25 01/15/25 Unknown History Allergies Allergy/AdvReac Type Severity Reaction Status Date / Time amoxicillin (From Augmentin) Allergy Mild Rash Verified 01/18/25 15:09 clavulanic acid Allergy Mild Rash Verified 01/18/25 15:09 Penicillins Allergy Mild Unknown Verified 01/18/25 15:13 Review of Systems Review of Systems: CONSTITUTIONAL: Denies fever, chills, or sweats. EYES: Denies visual changes, redness, or discharge. ENT: Denies rhinorrhea, congestion, sore throat. Positive for otalgia. CARDIOVASCULAR: Denies chest pain, palpitations, or edema. RESPIRATORY: Denies cough or dyspnea. GASTROINTESTINAL: Denies abdominal pain, nausea, vomiting, or diarrhea. GENITOURINARY: Denies dysuria or hematuria. SKIN: Denies rash or itching. MUSCULOSKELETAL: Denies back pain, joint pain, or myalgia. NEUROLOGIC: Denies headache, numbness, or weakness. PSYCHIATRIC: Denies anxiety or depression. All other systems reviewed are negative, except as documented in HPI. [facility] Past Medical History Medical History Migraines History of migraine Surgical History Surgical History No pertinent past surgical history Family History Family History Father Depression Thyroid disease Mother Depression Heart disease Thyroid disease thyroid cancer Other Family history of seizure disorder Hypertension Social History Social History Social History: Eb is single, no children. 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 Lifelong non-smoker, drinks alcohol a few times a month. Denies drug use. Smoking status: Never smoker Second hand tobacco smoke exposure: No Alcohol intake: current Drinks per week: 1 Substance use: never Lack of Transportation: No Lack of Food: Never True Current Housing: I Have Housing Concerned About Future Housing: No Difficulty Paying Gas/Electric Bills: No Difficulty Paying for Meds: No Currently Unemployed: No Education: High School Diploma/GED Difficulty w/ Childcare or Family Care: No Gender identity (if verbalized by the patient): Female Comments At the time of my signature, I reviewed and agree with the nursing past medical, surgical, social, and family history. There is no relevant family history pertinent to the patient complaint. Exam Narrative: GENERAL: This is a well-nourished, well-developed adult, in no apparent distress. They are non ill-appearing, nontoxic appearing. HEAD: normocephalic, atraumatic. EYES: Sclera clear/white. Conjunctiva normal. Vision is grossly intact. Extraocular movements intact EARS: External ears normal, left auditory canals clear and without drainage, right auditory canal erythematous, no exudate, no tragal tenderness. TMs normal without perforation. Hearing grossly intact. NOSE: External nose normal with no obvious nasal discharge, nasal turbinates without redness, no rhinorrhea. THROAT: Mucous membranes moist, posterior pharynx clear, without erythema or swelling. Uvula midline. NECK: Neck supple, non-tender without lymphadenopathy, masses or thyromegaly. CARDIOVASCULAR: Regular rate and rhythm without murmurs, gallops, or rubs. RESPIRATORY: Clear to auscultation. Breath sounds equal bilaterally. No wheezes, rales, or rhonchi. SKIN: Papular rash scattered scantly to hands and feet. Some lesions are scabbed. NEURO: awake, alert, and oriented to person, place and time. There were no obvious focal neurologic abnormalities. EXTREMITIES: No joint tenderness, effusion, or edema noted. BACK: Nontender without deformity. No CVA tenderness. Course Course Emergency Course: Portions of this record may have been created with voice recognition software Level of Care: Express Care Visit Vital Signs Vital signs: Vital Signs Temperature 97.9 F 01/18/25 15:10 Pulse Rate 95 01/18/25 15:10 Respiratory Rate 18 01/18/25 15:10 Blood Pressure 121/86 01/18/25 15:10 Pulse Oximetry 100 01/18/25 15:10 Oxygen Delivery Room Air 01/18/25 15:10 Temperature 97.9 F 01/18/25 15:10 Pulse Rate 95 01/18/25 15:10 Respiratory Rate 18 01/18/25 15:10 Blood Pressure 121/86 01/18/25 15:10 Pulse Oximetry 100 01/18/25 15:10 Oxygen Delivery Room Air 01/18/25 15:10 Reviewed Medical Decision Making MDM Narrative Medical decision making narrative: Patient is healing well from [id number]. Appears patient has a mild right sided otitis externa. Will treat with ofloxacin ear drops. Discussed physical exam findings. Advised supportive measures and signs/symptoms to go to the ER. Pt is appropriate for outpt treatment and f/u. Differential Diagnosis Differential Diagnosis: Otitis media, otitis externa, ear pain Vital Signs Vital Signs: Vital Signs Temperature 97.9 F 01/18/25 15:10 Pulse Rate 95 01/18/25 15:10 Respiratory Rate 18 01/18/25 15:10 Blood Pressure 121/86 01/18/25 15:10 Pulse Oximetry 100 01/18/25 15:10 Oxygen Delivery Room Air 01/18/25 15:10 Temperature 97.9 F 01/18/25 15:10 Pulse Rate 95 01/18/25 15:10 Respiratory Rate 18 01/18/25 15:10 Blood Pressure 121/86 01/18/25 15:10 Pulse Oximetry 100 01/18/25 15:10 Oxygen Delivery Room Air 01/18/25 15:10 Critical Care Time Critical Care Time Critical Care Time: No Discharge Plan Discharge Clinical Impression: Otitis externa Qualifiers: Otitis externa type: diffuse Chronicity: acute Laterality: right Qualified Code(s): H60.311 - Diffuse otitis externa, right ear Patient Disposition: Home Condition: Stable Instructions: Antibiotic Form, Ear Infection (ED) Additional Instructions: Take antibiotic drops as directed. Tylenol and ibuprofen every 8 hours as needed to reduce fever, pain, follow instructions on the bottle. Avoid water or anything into the ear for one week Follow up with your personal physician for further evaluation and treatment within 3-5days. If your symptoms persist, change or worsen significantly, go to the emergency department for further evaluation. Patient Language: Montenegrin Prescriptions: New ofloxacin 0.3 % drops 10 drp RIGHT EAR DAILY 7 Days Qty: 10 0RF No Action etonogestrel-ethinyl estradiol 0.12-0.015 mg/24 hr ring VAGINAL (DME) Space Chamber Spacer See Rx Instructions .ROUTE .MEDSUPPLY Qty: 1 0RF Rx Instructions: As directed ascorbic acid-zinc sulfate 100-200 mg tablet 1 tablet PO DAILY multivitamin Tablet 1 tablet PO DAILY Follow-up/Referrals: Kavitha Benson MD [Primary Care Provider, Family Practice] Time of Disposition: 15:51
== END 2025-01-18 16:03 | disposition home or self-care (01) ==
PROVIDERS: PCP Family Medicine
DX: H60.311 Diffuse otitis externa, right ear (principal)
CPT/HCPCS: 99213; G0463